=== PATIENT | female | born 1990 | race Caucasian/White ===

== ENCOUNTER 2019-03-23 10:40 | Observation (INO) | payer BC ==
[2019-03-23] MEDS ORDERED: PREN-153 OR (11:04)
== END 2019-03-23 13:38 | disposition home or self-care (01) | DRG 833 ==
LOC: LDRP 10:40
PROVIDERS: ADMIT Obstetrics & Gynecology; ATTEND Obstetrics & Gynecology
DX: O36.5930 Maternal care for other known or suspected poor fetal growth, third trimester, not applicable or unspecified (principal); O30.003 Twin pregnancy, unspecified number of placenta and unspecified number of amniotic sacs, third trimester; Z3A.32 32 weeks gestation of pregnancy
CPT/HCPCS: 59025; 76818; 81002; G0378

== ENCOUNTER 2019-03-27 08:26 | Observation (INO) | payer BC ==
[~2019-03-27 08:26] MED LIST: PREN-153 OR
== END 2019-03-27 10:40 | disposition home or self-care (01) | DRG 833 ==
LOC: LDRP 08:26
PROVIDERS: ADMIT Specialist; ATTEND Specialist
DX: O36.5930 Maternal care for other known or suspected poor fetal growth, third trimester, not applicable or unspecified (principal); Z3A.33 33 weeks gestation of pregnancy
CPT/HCPCS: 59025; 76818; G0378

== ENCOUNTER 2019-03-29 10:07 | Observation (INO) | payer BC | END 2019-03-29 13:13 | disposition home or self-care (01) | DRG 833 | LOC: LDRP 10:07 | PROVIDERS: ADMIT Specialist; ATTEND Specialist | DX: O26.893 Other specified pregnancy related conditions, third trimester (principal); R10.9 Unspecified abdominal pain; M54.9 Dorsalgia, unspecified; Z3A.33 33 weeks gestation of pregnancy | CPT/HCPCS: 59025; 76818; 81002; G0378 ==

== ENCOUNTER 2019-04-02 08:48 | Observation (INO) | payer BC | END 2019-04-02 10:42 | disposition home or self-care (01) | DRG 833 | LOC: LDRP 08:48 | PROVIDERS: ADMIT Obstetrics & Gynecology; ATTEND Obstetrics & Gynecology | DX: O36.5930 Maternal care for other known or suspected poor fetal growth, third trimester, not applicable or unspecified (principal); O30.003 Twin pregnancy, unspecified number of placenta and unspecified number of amniotic sacs, third trimester; Z3A.34 34 weeks gestation of pregnancy | CPT/HCPCS: 59025; 76818; 81002; G0378 ==

== ENCOUNTER 2019-04-05 08:11 | Observation (INO) | payer BC ==
[~2019-04-05] VITALS: Ht 170.2 cm; Wt 86.2 kg
[2019-04-05] MEDS ORDERED: TERBUTALINE SULFATE 1 MG/ML 1ML VIAL SC SCH (12:00)
[2019-04-05] MEDS ORDERED: BETAMETHASONE ACET (6MG/ML) 5ML VIAL IM ONE (12:00)
== END 2019-04-05 13:20 | disposition home or self-care (01) | DRG 833 ==
LOC: LDRP 08:11
PROVIDERS: ADMIT Obstetrics & Gynecology; ATTEND Obstetrics & Gynecology
DX: O36.5930 Maternal care for other known or suspected poor fetal growth, third trimester, not applicable or unspecified (principal); O30.003 Twin pregnancy, unspecified number of placenta and unspecified number of amniotic sacs, third trimester; Z3A.34 34 weeks gestation of pregnancy
CPT/HCPCS: 59025; 76818; 81002; 96372; G0378; J0702; J3105

== ENCOUNTER 2019-04-06 12:00 | Observation (INO) | payer BC ==
[~2019-04-06] VITALS: Ht 165.1 cm; Wt 96.2 kg
[2019-04-06] MEDS ORDERED: BETAMETHASONE ACET (6MG/ML) 5ML VIAL IM ONE (12:15)
== END 2019-04-06 13:33 | disposition home or self-care (01) | DRG 833 ==
LOC: LDRP 12:00
PROVIDERS: ADMIT Obstetrics & Gynecology; ATTEND Obstetrics & Gynecology
DX: O36.5993 Maternal care for other known or suspected poor fetal growth, unspecified trimester, fetus 3 (principal); O30.003 Twin pregnancy, unspecified number of placenta and unspecified number of amniotic sacs, third trimester; Z3A.34 34 weeks gestation of pregnancy
CPT/HCPCS: 59025; 81002; 96372; G0378; J0702

== ENCOUNTER 2019-04-08 18:57 | Observation (INO) | payer BC | END 2019-04-08 21:41 | disposition home or self-care (01) | DRG 833 | LOC: LDRP 18:57 | PROVIDERS: ADMIT Specialist; ATTEND Specialist | DX: O30.003 Twin pregnancy, unspecified number of placenta and unspecified number of amniotic sacs, third trimester (principal); O32.1XX0 Maternal care for breech presentation, not applicable or unspecified; Z3A.35 35 weeks gestation of pregnancy | CPT/HCPCS: 59025; 76818; 81002; G0378 ==

== ENCOUNTER 2019-04-10 10:18 | Observation (INO) | payer BC ==
[~2019-04-10] VITALS: Ht 30.5 cm; Wt 0.5 kg
== END 2019-04-12 10:22 | disposition home or self-care (01) | DRG 833 ==
LOC: LDRP 04-12 08:12
PROVIDERS: ADMIT Specialist; ATTEND Specialist
DX: O36.8330 Maternal care for abnormalities of the fetal heart rate or rhythm, third trimester, not applicable or unspecified (principal); Z3A.35 35 weeks gestation of pregnancy
CPT/HCPCS: 59025; 76818; 81002; G0378

== ENCOUNTER 2019-04-15 09:27 | Observation (INO) | payer BC | END 2019-04-15 11:18 | disposition home or self-care (01) | DRG 833 | LOC: LDRP 09:27 | PROVIDERS: ADMIT Specialist; ATTEND Specialist | DX: O36.8330 Maternal care for abnormalities of the fetal heart rate or rhythm, third trimester, not applicable or unspecified (principal); O30.003 Twin pregnancy, unspecified number of placenta and unspecified number of amniotic sacs, third trimester; O36.5993 Maternal care for other known or suspected poor fetal growth, unspecified trimester, fetus 3; Z3A.36 36 weeks gestation of pregnancy | CPT/HCPCS: 59025; 76818; 81002; G0378 ==

== ENCOUNTER 2019-04-19 05:13 | Inpatient (IN) | payer BC ==
[~2019-04-19] VITALS: Ht 165.1 cm; Wt 95.7 kg
[2019-04-19] VITALS (22 sets, daily range): BP systolic 80–117; BP diastolic 34–73
[~2019-04-19 05:13] MED LIST changes: +OXYTOCIN 10 UNIT/ML 10ML VIAL IV ONE; +PHENYLEPHRINE HCL 10 MG/ML VL IV ONE; +diphenhdrAMINE HCL 50 MG/1 ML VL IV ONE
[2019-04-19 06:55] LABS: Eosinophils # (auto) 0.1 uL; Hemoglobin 10.3 g/dL (12.2-16.2); Monocytes # (auto) 0.7 uL
[2019-04-19 06:58] LABS: Basophils # (auto) 0.1 uL; Basophils % (auto) 0.5 % (0.0-2.0); Eosinophils % (auto) 1.3 % (0.0-7.0); Hematocrit 31.2 % (36.0-46.0); Lymphocytes % (auto) 20.9 % (10.0-50.0); Mean Corpuscular Hemoglobin 25.7 pg (28.0-32.0); Mean Corpuscular Hgb Conc. 32.9 g/dL (32.0-36.0); Mean Corpuscular Volume 78.2 fL (80.0-100.0); Monocytes % (auto) 7.3 % (0.0-12.0); Neutrophils # (auto) 6.6 uL; Nucleated Red Blood Cells % 0.1 %; Platelet Count (auto) 184 10^3/uL (140-450); Red Blood Cells 3.99 10^6/uL (4.0-5.20); White Blood Cell 9.4 10^3/uL (4.4-10.8)
[2019-04-19 07:06] LABS: INR < 0.93 (0.9-1.15); Partial Thromboplastin Time 26.6 sec (23.64-32.05)
[2019-04-19 07:13] LABS: Albumin 2.4 g/dL (3.4-5.0); BUN/Creatinine Ratio 12.5; Calcium 8.1 mg/dL (8.5-10.1)
[2019-04-19 07:16] LABS: Bilirubin, Total 0.5 mg/dL (0.2-1.0); Total Protein 6.1 g/dL (6.4-8.2)
[2019-04-19] MEDS ORDERED: fentaNYL CITRATE 100 MCG/2 ML VL ONE (09:13)
[2019-04-19] MEDS ORDERED: MORPHINE SULF(PF) 0.5MG/ML 10ML VIAL ONE (09:13)
[2019-04-19] MEDS ORDERED: MIDAZOLAM HCL 1MG/1ML-2 ML VIAL ONE (09:14)
[2019-04-19] MEDS ORDERED: TETRACAINE 1% INJ 2 ML VIAL IJ ONE ×2 (09:15→09:18)
[2019-04-19] MEDS ORDERED: ceFAZolin 1GM VL ONE (09:55)
[2019-04-19] MEDS ORDERED: ceFAZolin 1GM/50ML 50 ML IV SCH (10:45)
[2019-04-19] MEDS ORDERED: ONDANSETRON HCL 4 MG/2 ML VIAL IV PRN ×3 (10:45→11:00)
[2019-04-19 10:57] LABS: Urine Bacteria NONE SEEN /hpf (None Seen); Urine Blood TRACE /uL (Negative); Urine Mucus FEW (None Seen); Urine Specific Gravity 1.009 (1.001-1.035); Urine WBC 1 /hpf (0 - 5)
[2019-04-19] MEDS ORDERED: LABETALOL HCL 5 MG/ML 4ML SYRINGE IV PRN (11:00)
[2019-04-19] MEDS ORDERED: MORPHINE SULFATE 4 MG/ML SYR/VIAL IV PRN (11:00)
[2019-04-19] MEDS ORDERED: KETOROLAC TROMETH 30 MG/ML 1ML VIAL IV PRN (11:00)
[2019-04-19] MEDS ORDERED: ePHEDrine SULFATE 50 MG/ML AMP IV PRN (11:00)
[2019-04-19] MEDS ORDERED: HYDROmorphone HCL 2 MG/ML VL IV PRN ×2 (11:00)
[2019-04-19] MEDS ORDERED: MIDAZOLAM HCL 1MG/1ML-2 ML VIAL IV PRN (11:00)
[2019-04-19] MEDS ORDERED: NALOXONE HCL 0.4 MG/ML VIAL IV PRN (11:00)
[2019-04-19] MEDS ORDERED: NALBUPHINE HCL 10 MG/1ml INJECTION SUBCUT ONE (11:00)
[2019-04-19] MEDS ORDERED: DexAMETHasone SOD PHOS 10MG/1ML VIAL INJ IV PRN (11:00)
[2019-04-19] MEDS ORDERED: KETOROLAC TROMETH 30 MG/ML 1ML VIAL IV ONE (11:00)
[2019-04-19] MEDS ORDERED: diphenhdrAMINE HCL 50 MG/1 ML VL IV PRN (11:00)
[2019-04-19] MEDS ORDERED: OXYTOCIN 10UNIT/ML 1ML VIAL ONE (11:28)
--- NOTE | 2019-04-19 11:42 | NUR ---
Post Op for LDRP: Received patient from PACU via bed to room 8a. Patient A/A/Ox4, abdominal binder and bilateral SCD's are in place, IV fluids placed on pump and infusing per order, incisional site dressing clean/dry/intact and Coelho Catheter to gravity draining clear yellow urine. Fundus firm 1 above umbilicus, small lochia rubra noted. Incentive Spirometer at bedside and instruction on proper use with return demonstration done by patient.
[2019-04-19] MEDS: LACT. RINGERS/OXYTOCIN 20UNITS 1,000 ML IV SCH ×2 (13:08→22:39)
--- NOTE | 2019-04-19 16:30 | NUR ---
REPORT RECEIVED FROM Laura TAFOYA RN. RESUME CARE Addendum: 04/19/19 at 1837 by Aden Luciano RN NURSE REPORT RECEIVED IS ADEN LUCIANO FROM LOTTIE MARTINEZ AT [id number]
[2019-04-19] MEDS: ceFAZolin 1GM/50ML 50 ML IV SCH (17:54)
[2019-04-19] MEDS: MORPHINE SULFATE 4 MG/ML SYR/VIAL IV PRN ×2 (17:55→23:38)
[2019-04-19 20:00] LABS: Basophils # (auto) 0 uL; Eosinophils # (auto) 0 uL; Eosinophils % (auto) 0.2 % (0.0-7.0); Mean Corpuscular Hemoglobin 26.2 pg (28.0-32.0); Mean Corpuscular Hgb Conc. 33.3 g/dL (32.0-36.0)
[2019-04-19 20:02] LABS: Basophils % (auto) 0.4 % (0.0-2.0); Hematocrit 27.8 % (36.0-46.0); Hemoglobin 9.3 g/dL (12.2-16.2); Lymphocytes # (auto) 1.4 uL; Lymphocytes % (auto) 13.6 % (10.0-50.0); Mean Corpuscular Volume 78.6 fL (80.0-100.0); Monocytes # (auto) 0.7 uL; Monocytes % (auto) 6.8 % (0.0-12.0); Neutrophils # (auto) 8.1 uL; Platelet Count (auto) 152 10^3/uL (140-450); Red Blood Cells 3.54 10^6/uL (4.0-5.20); Red Cell Distribution Width 15.1 % (11.8-14.3); White Blood Cell 10.2 10^3/uL (4.4-10.8)
--- NOTE | 2019-04-19 23:00 | NUR ---
Ambulation: Patient provided pericare, clean underpad and gown. Surgical dressing removed, incision clean and dry with 16 intact jessica and well approximated edges. Patient OOB with standby assistance by RN. Patient ambulated approx [address] Patient able to void without difficulty. Pericare teaching provided with returned demonstration by patient. Bed linen changed. Patient ambulated back to bed with steady gait and no distress noted, call light within reach and patient able to make needs known.
[2019-04-19] MEDS: LACTATED RINGER'S 1,000 ML IV SCH (23:36)
[2019-04-20] VITALS (7 sets, daily range): BP systolic 102–130; BP diastolic 57–85
[2019-04-20] MEDS: LACT. RINGERS/OXYTOCIN 20UNITS 1,000 ML IV SCH (01:05)
[2019-04-20] MEDS: ceFAZolin 1GM/50ML 50 ML IV SCH ×2 (02:08→10:00)
[2019-04-20] MEDS: MORPHINE SULFATE 4 MG/ML SYR/VIAL IV PRN (03:34)
[2019-04-20 05:07] LABS: RPR Non Reactive (Non Reactive)
--- NOTE | 2019-04-20 05:10 | NUR ---
Dr. Roca called, updated on patient status including fundal height and abd palpates firm. VS reviewed, urine about reviewed, and informed of gold ball sized clot noted upon pericare. Orders received to monitor patient HR via pulse ox for approx 1 hr. Orders will be followed.
[2019-04-20 08:09] LABS: Basophils # (auto) 0 uL; Basophils % (auto) 0.3 % (0.0-2.0); Eosinophils # (auto) 0 uL; Hemoglobin 9.9 g/dL (12.2-16.2); Monocytes # (auto) 0.9 uL
[2019-04-20 08:11] LABS: Eosinophils % (auto) 0.3 % (0.0-7.0); Hematocrit 30.9 % (36.0-46.0); Lymphocytes # (auto) 1.5 uL; Lymphocytes % (auto) 12.5 % (10.0-50.0); Mean Corpuscular Hemoglobin 25.4 pg (28.0-32.0); Mean Corpuscular Hgb Conc. 32.1 g/dL (32.0-36.0); Mean Corpuscular Volume 79.3 fL (80.0-100.0); Monocytes % (auto) 7.2 % (0.0-12.0); Neutrophils # (auto) 9.9 uL; Neutrophils % (auto) 79.7 % (37.0-80.0); Nucleated Red Blood Cells % 0.1 %; Platelet Count (auto) 189 10^3/uL (140-450); Red Blood Cells 3.89 10^6/uL (4.0-5.20); Red Cell Distribution Width 14.7 % (11.8-14.3); White Blood Cell 12.4 10^3/uL (4.4-10.8)
--- NOTE | 2019-04-20 08:17 | NUR ---
0812 PT SITTING IN CHAIR AT SIDE OF BED. PT ASSISTED TO BEDSIDE CHAIR BY Wally GIFFORD RN. 0817 PT CALLED USING CALL LIGHT AND STATED THAT "SHE FEELS DIZZY." THIS RN WENT INTO PT ROOM AND ASSESSED PT. PT FOUND SITTING IN CHAIR WITH FEET PLACED ON THE FLOOR. VITAL SIGNS ASSESSED, BP 86/58, HR 94, 02 SATURATION 93% ON ROOM AIR, RR 18, PTS MAHONEY CATHETER IS PATENT AND DRAINING CLEAR YELLOW URINE TO GRAVITY. PT GIVEN HER INCENTIVE SPIROMETER AND DEMONSTRATED USING IT 10 TIMES AND GIVEN SOME WATER TO DRINK. 0822- PT DENIES ANY DIZZINESS AT THIS TIME. PT ESCORTED TO BED 108B BY THIS RN AND Wally FISCHER RN. PT VITALS REASSESSED AGAIN, BP 105/61, HR 94BPM, RR17, 02 SATURATION 94% ON ROOM AIR. PTS FUNDUS IS FIRM, AT UMBILICUS, SMALL RUBRA BLEEDING NOTED, KAMERON CLEAN, DRY, AND INTACT, OPEN TO AIR. NO S/S OF DISTRESS, SOB OR DIZZINESS NOTED. WILL NOTIFY DR. FLANAGAN.
--- NOTE | 2019-04-20 08:30 | NUR ---
DR. FLANAGAN AT PT BEDSIDE FOR PT ASSESSMENT, STATUS UPDATE GIVEN. PTS VITALS CHECKED AT BEDSIDE, BP 115/73, HR 93BPM, RR17, 95% O2 SATURATION ON ROOM AIR, PTS FUNDUS IS FIRM, AT UMBILICUS, SMALL RUBRA BLEEDING NOTED, KAMERON CLEAN, DRY, AND INTACT, OPEN TO AIR. NO DRAINAGE NOTED. ORDERS RECEIVED FROM DR. FLANAGAN FOR OFIRMEV 1000MG IV ONCE, AND KEEP PTS MAHONEY CATHETER IN AND MONITOR HOURLY URINE OUTPUTS. READ BACK AND VERIFIED ORDERS. WILL CARRY OUT.
[2019-04-20] MEDS ORDERED: HYDROcodone-ACET 5/325MG TAB PO PRN (08:45)
[2019-04-20] MEDS ORDERED: ACETAMINOPHEN IV 1000 MG/100ML (10MG/ML) IV ONE (09:00)
[2019-04-20] MEDS ORDERED: BISACODYL 10 MG RECT SUPP PR PRN (09:15)
[2019-04-20] MEDS: HYDROcodone-ACET 5/325MG TAB PO PRN ×2 (09:15→21:49)
[2019-04-20] MEDS: LACTATED RINGER'S 1,000 ML IV SCH (09:16)
[2019-04-20] MEDS: SIMETHICONE 80 MG CHEWABLE TABLET PO SCH ×3 (09:17→21:48)
[2019-04-20] MEDS: DOCUSATE SOD 100 MG CAP PO SCH ×2 (10:03→21:48)
[2019-04-20] MEDS: DOCUSATE CALCIUM 240 MG CAP PO SCH (10:04)
--- NOTE | 2019-04-20 12:27 | NUR ---
DR. FLANAGAN CALLED UNIT, STATUS UPDATE GIVEN. DR. FLANAGAN NOTIFIED OF PTS TRENDING URINE OUTPUTS, ALL TRENDING VITAL SIGNS, PTS FUNDUS IS FIRM, AT UMBILICUS, SMALL RUBRA BLEEDING NOTED, BOWEL SOUNDS PRESENT, NO FLATUS YET. AND PT DENIES ANY DIZZINESS OR SOB. ORDERS RECEIVED FROM DR. FLANAGAN TO D/C PTS MAHONEY CATHETER AND SALINE LOCK PTS IV. READ BACK AND VERIFIED ORDERS. WILL CARRY OUT.
--- NOTE | 2019-04-20 13:40 | NUR ---
PT AMBULATED TO BATHROOM VIS STEADY GAIT, PT VOIDED 350 ML YELLOW URINE WITHOUT DIFFICULTY. PERICARE PROVIDED AND SPONGE BATH GIVEN PER PT REQUEST. PT DENIES ANY S/S OF DISTRESS, DIZZINESS OR SOB NOTED. WILL CONTINUE TO MONITOR.
[2019-04-20] MEDS: FERROUS SULFATE 325 MG TAB PO SCH ×2 (14:03→21:48)
--- NOTE | 2019-04-20 16:10 | NUR ---
VOID #2 PT AMBULATED TO BATHROOM VIS STEADY GAIT, PT VOIDED 400 ML YELLOW URINE WITHOUT DIFFICULTY. PERICARE PROVIDED. PT DENIES ANY S/S OF DISTRESS, DIZZINESS OR SOB NOTED. WILL CONTINUE TO MONITOR.
--- NOTE | 2019-04-20 18:10 | NUR ---
Patient up ambulating in [place] with steady gait, no distress noted.
[2019-04-20] MEDS: IBUPROFEN 800 MG TAB PO PRN (18:22)
--- NOTE | 2019-04-20 19:50 | NUR ---
Patient ambulating in [place] with steady gait, no distress noted.
--- NOTE | 2019-04-20 21:30 | NUR ---
Patient verbalizes that she has been able to pass gas.
[2019-04-21] MEDS: IBUPROFEN 800 MG TAB PO PRN ×3 (02:09→18:54)
[2019-04-21 02:30] VITALS: BP 99/68
[2019-04-21] MEDS: HYDROcodone-ACET 5/325MG TAB PO PRN ×2 (05:29→13:48)
[2019-04-21] MEDS: SIMETHICONE 80 MG CHEWABLE TABLET PO SCH ×4 (05:30→22:00)
[2019-04-21] MEDS: FERROUS SULFATE 325 MG TAB PO SCH ×3 (05:30→18:54)
[2019-04-21 07:00] VITALS: BP 116/77
--- NOTE | 2019-04-21 08:50 | NUR ---
IV removal IV DC'd with clean technique, catheter fully intact. Pressure dressing applied to site. Patient tolerated well. NOTE:
[2019-04-21] MEDS: DOCUSATE CALCIUM 240 MG CAP PO SCH (09:46)
[2019-04-21] MEDS: DOCUSATE SOD 100 MG CAP PO SCH ×2 (09:46→18:54)
[2019-04-21 11:00] VITALS: BP 116/69
[2019-04-21 15:00] VITALS: BP 112/72
[2019-04-21 19:00] VITALS: BP 120/74
[2019-04-21 22:52] VITALS: BP 105/59
[2019-04-22 03:00] VITALS: BP 110/70
[2019-04-22] MEDS: SIMETHICONE 80 MG CHEWABLE TABLET PO SCH (06:00)
[2019-04-22 06:34] VITALS: BP 120/72
--- NOTE | 2019-04-22 06:38 | NUR ---
C/S Staple Removal DC Note: Soni Killian CNM at pt bedside Toone removed using sterile technique by Soni Killian CNM. Lower abdominal incision approximated, no drainage/redness/inflammation visualized at time of removal. Steri-strips applied Soni Killian CNM. . Education provided on incisional care Soni Killian CNM. . Patient verbalized understanding and willingness to comply to instructions/teaching provided.
--- NOTE | 2019-04-22 08:10 | NUR ---
Discharge: Discharge instructions given as ordered. Pt encouraged to follow up with [facility] as instructed. All questions and concerns addressed. Patient verbalized understanding. Medication reconciliation completed and copy given to patient. Patient encouraged to prepare to depart unit.
[2019-04-22] MEDS: FERROUS SULFATE 325 MG TAB PO SCH (08:49)
--- NOTE | 2019-04-22 09:00 | NUR ---
Discharge: Patient taken to vehicle ambulatory via steady gait, pt declined wheelchair with all personal belongings, accompanied by staff and family member. No distress noted at time of departure, no adverse changes in status since initial assessment.
== END 2019-04-22 19:47 | disposition home or self-care (01) | DRG 788 ==
LOC: LDRP 05:13
PROVIDERS: ADMIT Obstetrics & Gynecology; ATTEND Obstetrics & Gynecology
PROC: 10D00Z1 Extraction of Products of Conception, Low, Open Approach (ICD-10-PCS; principal; 2019-04-19 09:25)
DX: O32.1XX2 Maternal care for breech presentation, fetus 2 (principal); O36.5932 Maternal care for other known or suspected poor fetal growth, third trimester, fetus 2; O30.003 Twin pregnancy, unspecified number of placenta and unspecified number of amniotic sacs, third trimester; Z37.2 Twins, both liveborn; Z3A.36 36 weeks gestation of pregnancy
CPT/HCPCS: 36415; 51702; 80053; 81001; 84112; 85025; 85610; 85730; 86592; 86850; 86900; 86901; 96361; 96365; 96375; G0378; J0131; J0690; J2250; J2590

== ENCOUNTER 2022-05-18 04:02 | Inpatient (IN) | payer BC ==
[2022-05-16 14:59] LABS: Basophils # (auto) 0 10 ^3/uL (0-0.2); Lymphocytes # (auto) 1.5 10 ^3/uL (0.4-5.4); Mean Corpuscular Hgb Conc. 31.4 g/dL (32.0-36.0); Mean Corpuscular Volume 76.3 fL (80.0-100.0); Monocytes # (auto) 0.4 10 ^3/uL (0-1.3)
[2022-05-16 15:09] LABS: Basophils % (auto) 0.4 % (0.0-2.0); Eosinophils # (auto) 0.1 10 ^3/uL (0-0.8); Eosinophils % (auto) 0.7 % (0.0-7.0); Hemoglobin 10.4 g/dL (12.2-16.2); Lymphocytes % (auto) 19.9 % (10.0-50.0); Mean Corpuscular Hemoglobin 23.9 pg (28.0-32.0); Monocytes % (auto) 5.6 % (0.0-12.0); Neutrophils # (auto) 5.6 10 ^3/uL (1.6-8.6); Neutrophils % (auto) 73.4 % (37.0-80.0); Nucleated Red Blood Cells % 0.1 %; Red Blood Cells 4.32 10^6/uL (4.0-5.20); Red Cell Distribution Width 18.2 % (11.8-14.3); White Blood Cell 7.6 10^3/uL (4.4-10.8)
[2022-05-16 15:16] LABS: INR 0.9 (0.9-1.15); Partial Thromboplastin Time 27.3 sec (24.6-33.4)
[2022-05-16 15:23] LABS: Albumin 2.4 g/dL (3.4-5.0); BUN/Creatinine Ratio 13.6; Bilirubin, Total 0.5 mg/dL (0.2-1.0); Calcium 8.7 mg/dL (8.5-10.1); Potassium 3.8 mmol/L (3.5-5.1); Uric Acid 4.8 mg/dL (2.6-6.0)
[2022-05-17 08:06] LABS: RPR Non Reactive (Non Reactive)
[2022-05-18] VITALS (19 sets, daily range): BP systolic 82–108; BP diastolic 39–97
[~2022-05-18] VITALS: Ht 165.1 cm; Wt 96.2 kg
[~2022-05-18 04:02] MED LIST changes: -OXYTOCIN 10 UNIT/ML 10ML VIAL IV ONE; -PHENYLEPHRINE HCL 10 MG/ML VL IV ONE; -PREN-153 OR; +PREN1TAB71 OR; -diphenhdrAMINE HCL 50 MG/1 ML VL IV ONE
[2022-05-18] MEDS ORDERED: ceFAZolin 1GM/50ML 50 ML IV ONE (04:15)
[2022-05-18] MEDS ORDERED: LACTATED RINGER'S 1,000 ML IV ONE (04:15)
[2022-05-18] MEDS ORDERED: METOCLOPRAMIDE HCL 5MG/ml INJ 2ml VIAL IV ONE (04:15)
[2022-05-18] MEDS ORDERED: SODIUM CITR/CITRIC ACID ORAL SOLN 30 ML PO ONE (04:15)
[2022-05-18] MEDS: LACTATED RINGER'S 1,000 ML IV SCH ×3 (05:43→20:35)
[2022-05-18] MEDS ORDERED: ONDANSETRON HCL 4 MG/2 ML VIAL IV PRN ×3 (07:15→09:00)
[2022-05-18] MEDS ORDERED: ceFAZolin 1GM/50ML 50 ML IV SCH (07:15)
[2022-05-18] MEDS ORDERED: LACT. RINGERS/OXYTOCIN 20UNITS 1,000 ML IV ONE (07:15)
[2022-05-18] MEDS ORDERED: HYDR-4902 PO ×2 (07:18)
[2022-05-18] MEDS ORDERED: DOCU-94 PO ×2 (07:18)
[2022-05-18] MEDS ORDERED: IBUP800T27 PO ×2 (07:18)
[2022-05-18] MEDS ORDERED: ePHEDrine SULFATE 50 MG/ML AMP ONE (07:34)
[2022-05-18] MEDS ORDERED: GLYCOPYRROLATE 0.2 MG/ML 1ML VIAL ONE (07:34)
[2022-05-18] MEDS ORDERED: oxyTOCIN 10 UNIT/ML 10ML VIAL ONE (07:34)
[2022-05-18] MEDS ORDERED: ONDANSETRON HCL 4 MG/2 ML VIAL ONE (07:34)
[2022-05-18] MEDS ORDERED: KETOROLAC TROMETH 30 MG/ML 1ML VIAL ONE (07:34)
[2022-05-18] MEDS ORDERED: FAMOTIDINE (10MG/ML) 2ML VL IV ONE (07:35)
[2022-05-18] MEDS ORDERED: fentaNYL CITRATE 100 MCG/2 ML VL ONE (07:35)
[2022-05-18] MEDS ORDERED: MORPHINE SULF PF 5 MG/10 ML VIAL ONE (07:35)
[2022-05-18 07:42] LABS: Urine Specific Gravity 1.021 (1.001-1.035)
[2022-05-18 07:43] LABS: Urine Blood Negative /uL (Negative)
[2022-05-18] MEDS ORDERED: diphenhdrAMINE HCL 50 MG/1 ML VL IV PRN (09:00)
[2022-05-18] MEDS ORDERED: NALBUPHINE HCL 10 MG/1ml INJECTION SUBCUT ONE (09:00)
[2022-05-18] MEDS ORDERED: DexAMETHasone SOD PHOS 10MG/1ML VIAL INJ IV PRN (09:00)
[2022-05-18] MEDS ORDERED: NALOXONE HCL 0.4 MG/ML VIAL IV PRN ×2 (09:00)
[2022-05-18] MEDS ORDERED: KETOROLAC TROMETH 30 MG/ML 1ML VIAL IV PRN (09:00)
[2022-05-18] MEDS ORDERED: FAMOTIDINE (10MG/ML) 2ML VL IV PRN (09:00)
[2022-05-18 09:18] LABS: Alcohol, Urine < 3.0 mg/dL (0-10); Cannabinoid Screen, Urine NEGATIVE (NEGATIVE)
[2022-05-18 09:20] LABS: Amphetamine Screen, Urine NEGATIVE (NEGATIVE); Barbiturate Scree,Urine NEGATIVE (NEGATIVE); Benzodiazephine Screen, Urine NEGATIVE (NEGATIVE); Cocaine Screen, Urine NEGATIVE (NEGATIVE); Opiate Scree,Urine NEGATIVE (NEGATIVE); Phencyclidine Screen, Urine NEGATIVE (NEGATIVE)
[2022-05-18] MEDS: ACETAMINOPHEN IV 1000 MG/100ML (10MG/ML) IV PRN ×2 (11:47→20:35)
[2022-05-18] MEDS: ceFAZolin 1GM/50ML 50 ML IV SCH ×2 (16:38→23:59)
[2022-05-18 22:02] LABS: Basophils # (auto) 0 10 ^3/uL (0-0.2); Basophils % (auto) 0.1 % (0.0-2.0); Eosinophils # (auto) 0 10 ^3/uL (0-0.8); Hemoglobin 9.2 g/dL (12.2-16.2); Lymphocytes # (auto) 1.2 10 ^3/uL (0.4-5.4); Lymphocytes % (auto) 10.1 % (10.0-50.0); Mean Corpuscular Hemoglobin 23.4 pg (28.0-32.0); Mean Corpuscular Volume 77.2 fL (80.0-100.0); Red Blood Cells 3.94 10^6/uL (4.0-5.20)
[2022-05-18 22:04] LABS: Hematocrit 30.5 % (36.0-46.0); Mean Corpuscular Hgb Conc. 30.3 g/dL (32.0-36.0); Monocytes # (auto) 0.9 10 ^3/uL (0-1.3); Monocytes % (auto) 7.2 % (0.0-12.0); Neutrophils # (auto) 9.8 10 ^3/uL (1.6-8.6); Neutrophils % (auto) 82.6 % (37.0-80.0); Red Cell Distribution Width 19.5 % (11.8-14.3); White Blood Cell 11.9 10^3/uL (4.4-10.8)
[2022-05-19 05:47] LABS: Basophils # (auto) 0 10 ^3/uL (0-0.2); Basophils % (auto) 0.4 % (0.0-2.0); Eosinophils # (auto) 0 10 ^3/uL (0-0.8); Monocytes # (auto) 0.6 10 ^3/uL (0-1.3); Red Blood Cells 3.74 10^6/uL (4.0-5.20)
[2022-05-19 05:50] LABS: Eosinophils % (auto) 0.1 % (0.0-7.0); Hemoglobin 9.2 g/dL (12.2-16.2); Lymphocytes # (auto) 1.7 10 ^3/uL (0.4-5.4); Lymphocytes % (auto) 18.5 % (10.0-50.0); Mean Corpuscular Hemoglobin 24.6 pg (28.0-32.0); Mean Corpuscular Hgb Conc. 31.7 g/dL (32.0-36.0); Mean Corpuscular Volume 77.5 fL (80.0-100.0); Monocytes % (auto) 6.8 % (0.0-12.0); Neutrophils # (auto) 6.6 10 ^3/uL (1.6-8.6); Neutrophils % (auto) 74.2 % (37.0-80.0); Red Cell Distribution Width 19.4 % (11.8-14.3); White Blood Cell 8.9 10^3/uL (4.4-10.8)
[2022-05-19] MEDS: ACETAMINOPHEN IV 1000 MG/100ML (10MG/ML) IV PRN (06:34)
[2022-05-19 07:00] VITALS: BP 99/54
[2022-05-19] MEDS: ceFAZolin 1GM/50ML 50 ML IV SCH (08:25)
[2022-05-19] MEDS ORDERED: HYDROcodone-ACET 5/325MG TAB PO PRN ×2 (09:30)
[2022-05-19 11:00] VITALS: BP 104/56
[2022-05-19] MEDS: IBUPROFEN 800 MG TAB PO PRN (12:17)
[2022-05-19] MEDS: DOCUSATE SOD 100 MG CAP PO SCH ×2 (12:17→22:00)
[2022-05-19] MEDS: SIMETHICONE 80 MG CHEWABLE TABLET PO SCH ×3 (12:17→22:00)
[2022-05-19 15:00] VITALS: BP 110/62
[2022-05-19 18:30] VITALS: BP 117/46
[2022-05-19] MEDS ORDERED: BISACODYL 10 MG RECT SUPP PR PRN (22:00)
[2022-05-19 23:00] VITALS: BP 105/51
[2022-05-20] MEDS: IBUPROFEN 800 MG TAB PO PRN ×2 (00:12→08:05)
[2022-05-20 03:30] VITALS: BP 107/56
[2022-05-20] MEDS: SIMETHICONE 80 MG CHEWABLE TABLET PO SCH (06:00)
[2022-05-20 06:40] VITALS: BP 114/44
[2022-05-20 09:37] VITALS: BP 114/44
== END 2022-05-20 09:37 | disposition home or self-care (01) | DRG 788 ==
LOC: LDRP 04:02
PROVIDERS: ADMIT Obstetrics & Gynecology; ATTEND Obstetrics & Gynecology
PROC: 10D00Z1 Extraction of Products of Conception, Low, Open Approach (ICD-10-PCS; principal; 2022-05-18 07:38)
DX: O34.211 Maternal care for low transverse scar from previous cesarean delivery (principal); Z37.0 Single live birth; Z3A.39 39 weeks gestation of pregnancy; Z20.822 Contact with and (suspected) exposure to COVID-19
CPT/HCPCS: 36415; 59025; 80053; 80307; 81003; 84550; 85025; 85610; 85730; 86592; 86850; 86900; 86901; 94760; 94762; 96360; 96361; 96374; G0378; J0131; J0690; J1885; J2405; J2590; J3490

== ENCOUNTER 2022-05-22 08:35 | Emergency (ER) | payer BC, MEDICAID ==
[~2022-05-22] VITALS: Ht 165.1 cm; Wt 88.0 kg
[~2022-05-22 08:35] MED LIST changes: +DOCU-94 PO; +HYDR-4902 PO; +IBUP800T27 PO
[2022-05-22] MEDS ORDERED: PRED20TA2 PO (09:55)
[2022-05-22] MEDS ORDERED: CLIN300C8 PO (09:55)
[2022-05-22 10:10] VITALS: BP 104/61
== END 2022-05-22 10:17 | disposition home or self-care (01) ==
LOC: ER 08:35
DX: L03.211 Cellulitis of face (principal)

== ENCOUNTER 2022-06-23 10:54 | Emergency (ER) | payer MEDICAID ==
[~2022-06-23] VITALS: Ht 165.1 cm; Wt 76.0 kg
[~2022-06-23 10:54] MED LIST changes: +CLIN300C8 PO; +PRED20TA2 PO
[2022-06-23 11:35] LABS: Basophils # (auto) 0 10 ^3/uL (0-0.2); Monocytes # (auto) 0.7 10 ^3/uL (0-1.3); Monocytes % (auto) 6.8 % (0.0-12.0)
[2022-06-23 11:38] LABS: Basophils % (auto) 0.5 % (0.0-2.0); Eosinophils # (auto) 0.3 10 ^3/uL (0-0.8); Eosinophils % (auto) 2.6 % (0.0-7.0); Hematocrit 39.6 % (36.0-46.0); Hemoglobin 12.5 g/dL (12.2-16.2); Lymphocytes # (auto) 1.3 10 ^3/uL (0.4-5.4); Lymphocytes % (auto) 13.6 % (10.0-50.0); Mean Corpuscular Hemoglobin 23.9 pg (28.0-32.0); Mean Corpuscular Hgb Conc. 31.4 g/dL (32.0-36.0); Mean Corpuscular Volume 76.1 fL (80.0-100.0); Neutrophils # (auto) 7.5 10 ^3/uL (1.6-8.6); Neutrophils % (auto) 76.5 % (37.0-80.0); Nucleated Red Blood Cells % 0.1 %; White Blood Cell 9.8 10^3/uL (4.4-10.8)
[2022-06-23 11:48] LABS: Albumin 3.1 g/dL (3.4-5.0); BUN/Creatinine Ratio 10.1; Calcium 8.9 mg/dL (8.5-10.1); Potassium 3.6 mmol/L (3.5-5.1)
[2022-06-23 11:51] LABS: Bilirubin, Total 0.4 mg/dL (0.2-1.0); Total Protein 6.4 g/dL (6.4-8.2)
[2022-06-23 12:04] LABS: Urine Bacteria NONE SEEN /hpf (None Seen); Urine Blood 3+ /uL (Negative); Urine Mucus MODERATE (None Seen); Urine Specific Gravity 1.021 (1.001-1.035); Urine WBC 40 /hpf (0 - 5)
[2022-06-23] MEDS ORDERED: metroNIDAZOLE 500 MG TAB PO ONE (13:15)
[2022-06-23] MEDS ORDERED: METR500T PO (15:09)
[2022-06-23] MEDS ORDERED: CIPR-173 PO (15:09)
[2022-06-23 15:25] VITALS: BP 110/69
== END 2022-06-23 15:27 | disposition home or self-care (01) ==
LOC: ER 10:54
DX: K52.9 Noninfective gastroenteritis and colitis, unspecified (principal); Z79.899 Other long term (current) drug therapy; Z79.1 Long term (current) use of non-steroidal anti-inflammatories (NSAID); Z79.2 Long term (current) use of antibiotics
CPT/HCPCS: 36415; 74176; 80053; 81001; 81025; 83690; 85025

== ENCOUNTER 2023-11-15 19:03 | Emergency (ER) | payer MEDICAID ==
[~2023-11-15 19:03] MED LIST changes: +CIPR-173 PO; +CLIN1CAP70 PO; -CLIN300C8 PO; +IBUP-1456 PO; -IBUP800T27 PO; +METR500T PO
== END 2023-11-15 20:15 | disposition left against medical advice (07) ==
LOC: ER 19:03
DX: N93.8 Other specified abnormal uterine and vaginal bleeding (principal); Z53.21 Procedure and treatment not carried out due to patient leaving prior to being seen by health care provider